=== PATIENT | male | born 1985 | race African-American/Black ===

== ENCOUNTER 2016-08-06 19:43 | Emergency (ER) | payer OTHER ==
[2016-08-06] MEDS ORDERED: OXYCODONE-ACETAMINOPHEN 5-325 MG TABLET PO ONE (20:34)
[2016-08-06] MEDS ORDERED: METHOCARBAMOL 500 MG TABLET PO ONE (20:34)
--- NOTE | 2016-08-06 20:35 | ER Document Report ---
ED Medical Screen (RME) - General Chief Complaint: Shoulder Injury Stated Complaint: RIGHT SHOULDER INJURY Mode of Arrival: Ambulatory Information source: Patient Notes: Patient complains of right trapezius and shoulder pain today after lifting weights. Patient denies any specific injury. - Related Data Allergies/Adverse Reactions: No Known Allergies Allergy (Unverified 08/06/16 20:34) Physical Exam - Vital signs Vitals: Temp Pulse Resp BP Pulse Ox 97.7 F 63 20 136/89 H 100 08/06/16 20:14 08/06/16 20:14 08/06/16 20:14 08/06/16 20:14 08/06/16 20:14 - Back Back: Tender - Right trapezius muscle tenderness with Course - Vital Signs Vital signs: Temp Pulse Resp BP Pulse Ox 97.7 F 63 20 136/89 H 100 08/06/16 20:14 08/06/16 20:14 08/06/16 20:14 08/06/16 20:14 08/06/16 20:14
[2016-08-06] MEDS ORDERED: DIAZEPAM INJ 10 MG/2 ML DISP.SYRIN IM ONE (22:35)
--- NOTE | 2016-08-06 22:43 | ER Document Report ---
HPI - HPI Patient complains to provider of: right shoulder pain Pain Level: 4 Context: Patient is a 31-year-old male that comes emergency department for chief complaint of sharp pain to his right shoulder with limited range of motion. Patient states he cannot rest or get comfortable. Patient states symptoms started after working out his shoulders at the gym today, symptoms actually started 2 hours after his workout, he did not feel the specific sharp pain or injury during the workout. Patient denies any other areas of pain or any other complaints. - CONSTITUTIONAL Constitutional: DENIES: Fever, Chills - EENT EENT: DENIES: Sore Throat, Ear Pain - NEURO Neurology: DENIES: Headache, Weakness, Vision blurred, Dizzinesss / Vertigo - CARDIOVASCULAR Cardiovascular: DENIES: Chest pain - RESPIRATORY Respiratory: DENIES: Trouble Breathing, Coughing - GASTROINTESTINAL Gastrointestinal: DENIES: Abdominal Pain, Nausea, Patient vomiting, Diarrhea, Constipation, Black / Bloody Stools - MUSCULOSKELETAL Musculoskeletal: REPORTS: Extremity pain - R shoulder. DENIES: Back Pain, Neck Pain, Swelling - DERM Skin Color: Normal Skin Problems: None - NURSING COMMENTS Comment: Pt presents amb to room with c/o R shoulder pain s/p injury while working out. Pt states that he did this today. A/O, answers questions. Holding R arm. Past Medical History - General Information source: Patient - Social History Smoking Status: Never Smoker Chew tobacco use (# tins/day): No Frequency of alcohol use: Social Drug Abuse: None Lives with: Family Family History: Reviewed & Not Pertinent Patient has suicidal ideation: No Patient has homicidal ideation: No - Medical History Medical History: Negative Renal/ Medical History: Denies: Hx Peritoneal Dialysis Surgical Hx: Negative - Immunizations Immunizations up to date: Yes Hx Diphtheria, Pertussis, Tetanus Vaccination: Yes Vertical Provider Document - CONSTITUTIONAL General Appearance: Mild Distress - Patient is holding his right shoulder close to his body, Other - Patient is very muscular - INFECTION CONTROL TRAVEL OUTSIDE OF THE [place] IN LAST 30 DAYS: No - HEENT HEENT: Atraumatic, Normocephalic - NECK Neck: Normal Inspection - RESPIRATORY Respiratory: Breath Sounds Normal, No Respiratory Distress O2 Sat by Pulse Oximetry: 100 - GI/ABDOMEN Gastrointestinal: Abdomen Soft, Abdomen Non-Tender - BACK Back: Normal Inspection - MUSCULOSKELETAL/EXTREMETIES Musculoskeletal/Extremeties: Tender - Patient has trouble lifting his right arm past 90, tenderness over the supraspinatus and scapular muscles of the right shoulder, tender AC joint, no swelling, normal arm, elbow, wrist, hand exam, normal distal neurovascular exam. No neck pain on examination. - NEURO Level of Consciousness: Awake, Alert, Appropriate Motor/Sensory: No Motor Deficit, No Sensory Deficit - DERM Integumentary: Warm, Dry, No Rash Course - Re-evaluation Re-evalutation: X-ray unremarkable. Exam and described symptoms concerning for torn muscle, possibly rotator cuff. Patient given a shot of Valium as muscle relaxant, will be placed on Valium, Valium starting to help when patient was discharged, patient given instructions for care of the shoulder, referred to orthopedics. Patient states understanding and agreement. - Vital Signs Vital signs: Temp Pulse Resp BP Pulse Ox 97.7 F 63 20 136/89 H 100 08/06/16 20:14 08/06/16 20:14 08/06/16 20:14 08/06/16 20:14 08/06/16 20:14 Discharge - Discharge Clinical Impression: Muscle strain Right shoulder pain Qualifiers: Chronicity: acute Qualified Code(s): M25.511 - Pain in right shoulder Condition: Stable Disposition: HOME, SELF-CARE Additional Instructions: Your x-ray of the shoulder does not show any concerning abnormalities. Your examination is consistent with muscle strain and spasm but is also concerning for possible rotator cuff tear. Take the Valium as directed, apply ice to your shoulder 3-4 times a day for 15 minutes, take anti-inflammatory, and rest the shoulder. Follow-up with orthopedics if symptoms continue as shown on the referral. Return to the emergency department for any concerning symptoms. Prescriptions: Diazepam [Valium 5 mg Tablet] 1 - 2 tab PO TID #15 tablet Forms: Return to Work Referrals: ESTHER ESPANA MD [ACTIVE STAFF] - Follow up in 1 week
[2016-08-06 23:23] VITALS: BP 128/74
[2016-08-07] MEDS ORDERED: HYDROCODONE/ACETAMINOPHEN 5-325 MG 6 TAB/DSPK PO PRN (01:03)
== END 2016-08-06 23:23 | disposition home or self-care (01) ==
LOC: ER 19:43
DX: M25.511 Pain in right shoulder (principal)
CPT/HCPCS: 99283; 96372; 73030; J3360